=== PATIENT | male | born 1990 | race Two or more races ===

== ENCOUNTER → 2017-03-16 | Outpatient (REF) | payer BC ==
[2017-03-16 13:07] LABS: ALBUMIN 4.3 GM/DL (3.2-5.2); ALKALINE PHOSPHATASE 86 U/L (45-117); ALT/SGPT 28 U/L (12-78); AST/SGOT 11 U/L (7-37); BILIRUBIN,DIRECT < 0.1 MG/DL (0.0-0.2); BILIRUBIN,TOTAL 0.3 MG/DL (0.2-1.0); CHOLESTEROL LEVEL 282 MG/DL (<200); CHOLESTEROL RISK RATIO 8.545 (<5); HDL CHOLESTEROL 33 MG/DL (>40); NON-HDL-C 249 MG/DL; TOTAL PROTEIN 7.6 GM/DL (6.4-8.2); TRIGLYCERIDES LEVEL 583 MG/DL (<150)
[2017-03-16 13:37] LABS: ESTIMATED AVERAGE GLUCOSE 100 MG/DL (60-110); HEMOGLOBIN A1c 5.1 %
== END ==
LOC: M SFHCLERA 09:40
DX: E66.09 Other obesity due to excess calories (principal); Z68.31 Body mass index [BMI] 31.0-31.9, adult
CPT/HCPCS: 80076

== ENCOUNTER → 2017-03-23 | Outpatient (REF) | payer BC ==
[2017-03-23 12:01] LABS: CHOLESTEROL LEVEL 234 MG/DL (<200); CHOLESTEROL RISK RATIO 7.312 (<5); HDL CHOLESTEROL 32 MG/DL (>40); LDL CHOLESTEROL 133.6 MG/DL (<100); NON-HDL-C 202 MG/DL; TRIGLYCERIDES LEVEL 342 MG/DL (<150)
== END ==
LOC: M SFHCLERA 08:02
DX: E78.2 Mixed hyperlipidemia (principal)
CPT/HCPCS: 80061

== ENCOUNTER 2017-07-03 17:20 | Emergency (ER) | payer OTHER, BC ==
[2017-07-03] MEDS: ONDANSETRON 4 MG ORAL DISINTEGRATING TAB (Q0162 PER 1MG) PO ×2 (18:15)
== END 2017-07-03 18:23 | disposition home or self-care (01) ==
LOC: M ED 17:20
DX: S06.0X0A Concussion without loss of consciousness, initial encounter (principal); W22.8XXA Striking against or struck by other objects, initial encounter; Y92.9 Unspecified place or not applicable; Y93.9 Activity, unspecified; Y99.0 Civilian activity done for income or pay
CPT/HCPCS: 99282; Q0162

== ENCOUNTER → 2018-11-26 | Outpatient (REF) | payer BC ==
[~2018-11-26] MED LIST: IBUP-1114 PO; ZOFR4TAB14 PO
[2018-11-26 12:23] LABS: CHOLESTEROL LEVEL 278 MG/DL (<200); CHOLESTEROL RISK RATIO 8.687 (<5); HDL CHOLESTEROL 32 MG/DL (>40); NON-HDL-C 246 MG/DL; TRIGLYCERIDES LEVEL 575 MG/DL (<150)
[2018-11-26 12:39] LABS: HEMOGLOBIN A1c 5.3 %
[2018-11-27 14:15] LABS: LDL DIRECT 139 mg/dL (0-99)
== END ==
LOC: M SFHCLERA 07:29
PROVIDERS: ATTEND Family Medicine
DX: E66.9 Obesity, unspecified (principal)

== ENCOUNTER → 2018-12-04 | Outpatient (REF) | payer BC ==
[2018-12-04 12:04] LABS: BASO # 0.1 10^3/uL (0.0-0.2); BASO % 0.9 % (0.0-1.0); EOS # 0.1 10^3/uL (0.0-0.5); EOS % 1.9 % (0.0-3.0); HEMATOCRIT 43.7 % (42.0-52.0); HEMOGLOBIN 15.1 g/dl (13.5-17.5); LYMPH # 2.2 10^3/uL (1.5-5.0); LYMPH % 41.5 % (24.0-44.0); MEAN CORPUSCULAR HEMOGLOBIN 29.2 pg (27.0-33.0); MEAN CORPUSCULAR HGB CONC 34.6 g/dl (32.0-36.5); MEAN CORPUSCULAR VOLUME 84.4 fl (80.0-96.0); MONO # 0.5 10^3/uL (0.0-0.8); MONO % 8.5 % (0.0-5.0); NEUTROPHILS # 2.5 10^3/uL (1.5-8.5); NEUTROPHILS % 46.8 % (36.0-66.0); PLATELET COUNT, AUTOMATED 329 10^3/uL (150-450); RED BLOOD COUNT 5.18 10^6/uL (4.30-6.10); WHITE BLOOD COUNT 5.3 10^3/uL (4.0-10.0)
[2018-12-07 10:07] LABS: BORDETELLA PARAPERTUSSIS PCR Negative (Negative); BORDETELLA PERTUSSIS BY PCR Negative (Negative)
== END ==
LOC: M SFHCLERA 07:31
PROVIDERS: ATTEND Family Medicine
DX: R05 Cough (principal)

== ENCOUNTER → 2018-12-04 | Outpatient (CLI) | payer BC ==
--- NOTE | 2018-12-04 08:34 | REP ---
PA and lateral chest: There are no comparisons. The lung gonzalez are clear. The cardiac size is normal. The nato, mediastinum, and skeletal structures are unremarkable. There is a small 5 mm round metallic foreign body in the posterior chest wall soft tissues on the left. Impression: Negative PA and lateral chest. Left posterior chest wall foreign body as described. Electronically Signed by Juan Carlos Thomas MD 12/04/2018 08:26 A
== END ==
LOC: M LRY 07:47
PROVIDERS: ATTEND Family Medicine
DX: R05 Cough (principal); M79.5 Residual foreign body in soft tissue

== ENCOUNTER 2020-10-28 12:26 | Emergency (ER) | payer BC ==
[~2020-10-28] VITALS: Ht 182.9 cm; Wt 106.9 kg
[2020-10-28 13:44] LABS: BASO # 0.1 10^3/uL (0.0-0.2); BASO % 0.4 % (0.0-1.0); EOS % 0.3 % (0.0-3.0); HEMATOCRIT 44.4 % (42.0-52.0); HEMOGLOBIN 15.3 g/dl (13.5-17.5); LYMPH # 1.3 10^3/uL (1.5-5.0); LYMPH % 11.1 % (24.0-44.0); MEAN CORPUSCULAR HEMOGLOBIN 29.5 pg (27.0-33.0); MEAN CORPUSCULAR HGB CONC 34.5 g/dl (32.0-36.5); MEAN CORPUSCULAR VOLUME 85.5 fl (80.0-96.0); MONO # 0.4 10^3/uL (0.0-0.8); MONO % 3.7 % (2.0-8.0); NEUTROPHILS # 9.7 10^3/uL (1.5-8.5); NEUTROPHILS % 83.9 % (36.0-66.0); PLATELET COUNT, AUTOMATED 295 10^3/uL (150-450); RED BLOOD COUNT 5.19 10^6/uL (4.30-6.10); WHITE BLOOD COUNT 11.6 10^3/uL (4.0-10.0)
[2020-10-28] MEDS ORDERED: ONDANSETRON 4MG/2ML VIAL IV ONE (13:55)
[2020-10-28] MEDS ORDERED: KETOROLAC 30 MG/ML 1ML VIAL IV ONE (13:55)
[2020-10-28] MEDS ORDERED: NS 1,000 ML IV ONE (13:55)
[2020-10-28 14:08] LABS: ALBUMIN 4.2 GM/DL (3.2-5.2); ALT/SGPT 26 U/L (12-78); BILIRUBIN,DIRECT < 0.1 MG/DL (0.0-0.2); BILIRUBIN,TOTAL 0.4 MG/DL (0.2-1.0); BLOOD UREA NITROGEN 14 MG/DL (7-18); CARBON DIOXIDE LEVEL 31 MEQ/L (21-32); CHLORIDE LEVEL 105 MEQ/L (98-107); GLOMERULAR FILTRATION RATE > 60.0 (>60); GLUCOSE, FASTING 110 MG/DL (70-100); LIPASE 110 U/L (73-393); POTASSIUM SERUM 4.3 MEQ/L (3.5-5.1); SODIUM LEVEL 140 MEQ/L (136-145); TOTAL PROTEIN 7.4 GM/DL (6.4-8.2)
--- NOTE | 2020-10-28 15:09 | REP ---
INDICATION: right flank pain, suspect kidney stone COMPARISON: None. TECHNIQUE: CT Scan of the abdomen and pelvis was performed without intravenous contrast. Sagittal and coronal reconstruction images performed. FINDINGS: Lung bases: Unremarkable. Liver: Grossly unremarkable. Gallbladder: Unremarkable. Spleen: Grossly unremarkable. Adrenals: Normal. Pancreas: Grossly unremarkable.. Kidneys: There is a punctate calculus in the lower pole the right kidney. There is mild right hydroureteronephrosis caused by a 3 mm calculus at the right ureterovesical junction. Small and large bowel: Grossly unremarkable. Free fluid: None. Abdominal aorta: No aneurysm. Adenopathy: None. Appendix: Not inflamed. Osseous structures: Unremarkable. Pelvis: No mass. No bladder calculus seen. IMPRESSION: There is mild right hydroureteronephrosis caused by a 3 mm calculus at the right ureterovesical junction. <Electronically signed by Juan Carlos Davis > 10/28/20 [id number]
[2020-10-28] MEDS ORDERED: HYDR-3713 PO (16:07)
[2020-10-28] MEDS ORDERED: FLOM0.4C39 PO (16:07)
[2020-10-28] MEDS ORDERED: ONDA4TAB6 PO (16:07)
[2020-10-28] MEDS ORDERED: KETO10TAB PO (16:07)
[2020-10-28 16:20] VITALS: BP 136/75
== END 2020-10-28 16:31 | disposition home or self-care (01) ==
LOC: M ED 12:26
DX: N13.0 Hydronephrosis with ureteropelvic junction obstruction (principal); N20.1 Calculus of ureter
CPT/HCPCS: 74176; 80048; 80076; 81001; 83690; 85025; 96361; 96374; 99284; J1885; J2405

== ENCOUNTER → 2022-07-29 | Outpatient (REF) ==
[~2022-07-29] MED LIST changes: +FLOM0.4C39 PO; +HYDR-3713 PO; +KETO10TAB PO; +ONDA4TAB6 PO
== END ==
LOC: M EMP 08:56
PROVIDERS: ATTEND Family Medicine
DX: Z20.822 Contact with and (suspected) exposure to COVID-19 (principal)

== ENCOUNTER → 2024-12-14 | Outpatient (RCR) ==
[~2024-12-14] MED LIST changes: -FLOM0.4C39 PO; +ONDA-282 PO; -ONDA4TAB6 PO; +TAMS-18 PO
== END ==
LOC: M EMPSKH 12-02 07:55
PROVIDERS: ATTEND Family Medicine
DX: Z20.828 Contact with and (suspected) exposure to other viral communicable diseases (principal)

== ENCOUNTER 2025-02-13 14:09 | Emergency (ER) | payer BC ==
[~2025-02-13] VITALS: Ht 182.9 cm; Wt 105.0 kg
[2025-02-13] MEDS ORDERED: IBUP80TA PO (14:31)
[2025-02-13 16:15] VITALS: BP 154/80; TEMP 97.9; O2SAT 98
== END 2025-02-13 16:16 | disposition home or self-care (01) ==
LOC: M ED 14:09
DX: S80.01XA Contusion of right knee, initial encounter (principal); M70.51 Other bursitis of knee, right knee; W00.0XXA Fall on same level due to ice and snow, initial encounter; Y92.018 Other place in single-family (private) house as the place of occurrence of the external cause; Y93.89 Activity, other specified; Y99.9 Unspecified external cause status